=== PATIENT | male | born 1960 | race Caucasian/White ===

== ENCOUNTER 2017-01-04 19:43 | Emergency (ER) | payer MEDICAID, OTHER ==
[~2017-01-04] VITALS: Ht 193 cm; Wt 104.3 kg
[~2017-01-04 19:43] MED LIST: ACE3T; DULO60CA; FLOMAX; FLUT250M9; LEVA0.31; QUET300T14; TOPI100T29
[2017-01-04 22:29] VITALS: BP 120/75
== END 2017-01-04 22:43 | disposition home or self-care (01) ==
LOC: ER 19:43
DX: F31.9 Bipolar disorder, unspecified (principal); J44.9 Chronic obstructive pulmonary disease, unspecified; I25.2 Old myocardial infarction; F17.210 Nicotine dependence, cigarettes, uncomplicated; Z76.0 Encounter for issue of repeat prescription